=== PATIENT | female | born 1935 | race Caucasian/White ===

== ENCOUNTER 2018-07-11 10:30 | Inpatient (IN) | payer MEDICARE, OTHER ==
[~2018-07-11] VITALS: Ht 165.1 cm; Wt 88.6 kg
[~2018-07-11 10:30] MED LIST: MULTI-VITAMIN1 EACH PO
--- NOTE | 2018-07-11 11:34 | Diagnostic Imaging Report ---
EXAM: CHEST SINGLE (PORTABLE), DATE: 07/11/2018 10:35 AM Time stamp on exam: 10:59 AM INDICATION: Shortness of breath COMPARISON: None FINDINGS: LINES/TUBES: None LUNGS: No consolidations or edema. Right basilar subsegmental atelectasis. PLEURA: No effusions or pneumothorax. HEART AND MEDIASTINUM: Normal size and contour. BONES AND SOFT TISSUES: No acute findings. Plate overlying the lower cervical spine. IMPRESSION: No acute thoracic abnormality. Signed by: Dr. Nikhil Pickard DO on 07/11/2018 11:30 AM
[2018-07-11] MEDS ORDERED: ASPIRIN 81 MG CHEW TAB PO ONE (11:45)
[2018-07-11 12:00] LABS: BASOPHILS % 0.2 % (0.0-1.0); HEMATOCRIT 36.3 % (34.2-44.1); HEMOGLOBIN 12.3 g/dL (12.0-16.0); LYMPHOCYTES # (AUTO) 0.7 (1.0-3.2); LYMPHOCYTES % 7.4 % (18.0-39.1); MEAN CORPUSCULAR HEMOGLOBIN 31.1 pg (28-32); MEAN CORPUSCULAR HGB CONC 33.9 g/dL (31-35); MEAN CORPUSCULAR VOLUME 91.7 fL (81-99); MONOCYTES # (AUTO) 0.3 (0.2-0.8); MONOCYTES % 3.4 % (4.4-11.3); NEUTROPHILS # (AUTO) 8.4 (2.1-6.9); NEUTROPHILS % 88.7 % (38.7-80.0); PLATELET COUNT 274 x10e3/uL (140-360); RED BLOOD COUNT 3.96 x10e6/uL (3.6-5.1); RED CELL DISTRIBUTION WIDTH 13.5 % (11.7-14.4)
[2018-07-11 12:23] LABS: ALANINE AMINOTRANSFERASE 24 IU/L (0-55); ALBUMIN 3.5 g/dL (3.5-5.0); ALKALINE PHOSPHATASE 174 IU/L (40-150); ANION GAP 14.1 mmol/L (8-16); BLOOD UREA NITROGEN 35 mg/dL (7-26); BUN/CREATININE RATIO 43 (6-25); CALCIUM 9.6 mg/dL (8.4-10.2); CARBON DIOXIDE 23 mmol/L (22-29); CHLORIDE 105 mmol/L (98-107); CREATININE, SERUM 0.81 mg/dL (0.57-1.11); EST GLOMERULAR FILTRATION RATE > 60 ML/MIN (60-); GLUCOSE 124 mg/dL (74-118); POTASSIUM 4.1 mmol/L (3.5-5.1); SODIUM 138 mmol/L (136-145)
[2018-07-11] MEDS ORDERED: CHERATUSSIN AC118 ML PO (12:26)
[2018-07-11] MEDS ORDERED: PREDNISONE20 MG PO (12:26)
[2018-07-11] MEDS ORDERED: LEVOFLOXACIN500 MG PO (12:26)
[2018-07-11 12:30] LABS: CREATINE KINASE 26 IU/L (29-168)
[2018-07-11 12:50] LABS: BILIRUBIN,URINE NEGATIVE (NEGATIVE); CLARITY,URINE CLEAR (CLEAR); COLOR,URINE YELLOW (YELLOW); KETONES,URINE NEGATIVE (NEGATIVE); LEUKOCYTE ESTERASE ,URINE NEGATIVE (NEGATIVE); NITRITE,URINE NEGATIVE (NEGATIVE); PROTEIN,URINE DIPSTICK NEGATIVE (NEGATIVE); URINE UROBILINOGEN 0.2 mg/dL (0.2 - 1)
[2018-07-11 13:29] VITALS: BP 175/81
[2018-07-11 13:32] VITALS: BP 175/81
[2018-07-11 13:41] VITALS: BP 175/81
[2018-07-11 16:00] VITALS: BP 103/57
[2018-07-11 19:46] VITALS: BP 157/67
[2018-07-11 19:55] VITALS: BP 157/67
[2018-07-11 20:34] LABS: CREATINE KINASE 18 IU/L (29-168)
[2018-07-12] VITALS (8 sets, daily range): BP systolic 113–150; BP diastolic 62–73
[2018-07-12 05:02] LABS: BASOPHILS % 0.1 % (0.0-1.0); HEMATOCRIT 34.3 % (34.2-44.1); HEMOGLOBIN 11.5 g/dL (12.0-16.0); LYMPHOCYTES # (AUTO) 1.3 (1.0-3.2); LYMPHOCYTES % 10.7 % (18.0-39.1); MEAN CORPUSCULAR HEMOGLOBIN 30.8 pg (28-32); MEAN CORPUSCULAR HGB CONC 33.5 g/dL (31-35); MONOCYTES # (AUTO) 0.8 (0.2-0.8); MONOCYTES % 6.3 % (4.4-11.3); NEUTROPHILS # (AUTO) 9.8 (2.1-6.9); NEUTROPHILS % 82.5 % (38.7-80.0); PLATELET COUNT 257 x10e3/uL (140-360); RED BLOOD COUNT 3.73 x10e6/uL (3.6-5.1); RED CELL DISTRIBUTION WIDTH 13.8 % (11.7-14.4)
[2018-07-12 05:34] LABS: CREATINE KINASE 21 IU/L (29-168)
[2018-07-12] MEDS: GUAIFENESIN 200 MG/10 ML UDC PO PRN ×2 (06:00→22:58)
[2018-07-12 06:09] LABS: ALANINE AMINOTRANSFERASE 20 IU/L (0-55); ALBUMIN 3.2 g/dL (3.5-5.0); ALBUMIN/GLOBULIN RATIO 1.1 (0.8-2.0); ALKALINE PHOSPHATASE 135 IU/L (40-150); BLOOD UREA NITROGEN 27 mg/dL (7-26); BUN/CREATININE RATIO 36 (6-25); CALCIUM 9.1 mg/dL (8.4-10.2); CARBON DIOXIDE 21 mmol/L (22-29); CHLORIDE 105 mmol/L (98-107); CREATININE, SERUM 0.75 mg/dL (0.57-1.11); EST GLOMERULAR FILTRATION RATE > 60 ML/MIN (60-); GLUCOSE 106 mg/dL (74-118); SODIUM 136 mmol/L (136-145)
[2018-07-12] MEDS ORDERED: BENZONATATE 100 MG CAP PO PRN (09:30)
[2018-07-12] MEDS ORDERED: ALBUTEROL/IPRATROPIUM 3 ML NEB NEB PRN (09:30)
[2018-07-12] MEDS ORDERED: LEVALBUTEROL HCL SOLN NEBU 0.63 MG/3 ML NEB INH PRN (09:30)
[2018-07-12] MEDS ORDERED: CEFTRIAXONE SOD 1 GM/NS 50 ML 50 ML IV SCH (09:30)
--- NOTE | 2018-07-12 10:12 | History and Physical ---
CHIEF COMPLAINT: Very fatigued, chest pain and not feeling well. HISTORY: Patient is an 82-year-old female who came to the hospital because of increase in weakness, chest pain and breathing difficulty. The patient was having some upper respiratory problems. She came to see Dr. Yonatan Beaulieu, her PCP. Was given Levaquin, Cheratussin and prednisone back on July 09, 2018. Patient took some of the medication, but she did feel well. Therefore, she came to see Dr. Beaulieu again. The patient had significant bradycardia. She was not feeling well and had difficulty breathing. Therefore, ambulance came and picked up the patient, and brought her to the hospital emergency room. Here the patient's EKG showed that she had a heart rate in the 50s. The patient has also increasing breathing issue as well. She has chest pressure and tightness. The patient is otherwise stable at this time. PAST MEDICAL HISTORY: Osteoarthritis, bilateral knee replacements. SOCIAL HISTORY: The patient lives with her . She does not smoke or use alcohol. No recreational drugs. ALLERGIES: ALBUTEROL, PENICILLIN AND VANCOMYCIN. HOME MEDICATIONS: Recently, Levaquin, Cheratussin AC and prednisone. PHYSICAL EXAMINATION VITAL SIGNS: Temperature is 98.6, blood pressure 122/67, pulse rate is 48, respirations are 22. GENERAL: The patient is not in acute distress. She is anxious. HEENT: Normocephalic, atraumatic and anicteric. NECK: Supple grossly. PULMONARY: Bilateral coarses and diminished breath rales. CARDIOVASCULAR: Bradycardia. ABDOMEN: Soft. EXTREMITIES: No cyanosis or edema. NEUROLOGIC: No focal deficit. LABORATORY: Sodium is 132, potassium 4, chloride 105, bicarb 21, BUN 27, creatinine 0.7, glucose 106. WBC is 12, hemoglobin 11.5, hematocrit is 34.3, and platelets is 257,000. IMPRESSION 1. Possible pneumonia, atypical. 2. Increasing shortness of breath and chest pain, most likely secondary to the above. 3. Bradycardia, etiology unclear at this time. PLAN: Antibiotics. Nebulizer treatment. Antitussive. Echocardiogram. Consultation with Dr. Moody Avalos. Check thyroid function test and electrolytes. DVT prophylaxis. Patient will be admitted for treatment. If her heart rate is not improved and the patient remains symptomatic, she may need a permanent pacemaker. Will discuss that with Dr. Moody Avalos, continuous improvement facilitator in consultation. Job#: [id number] RI
--- NOTE | 2018-07-12 10:43 | Consultation ---
DATE OF CONSULTATION: July 11, 2018 CARDIOLOGY CONSULTATION Thank you so much for asking me to see this nice lady in consultation. Mrs. Lopez is an 82-year-old woman who presented to the emergency room for what she felt was a "reaction" to antibiotics. HISTORY OF PRESENT ILLNESS: The patient reports that she saw Dr. Lynn in the last week for continuing cough. She was given a prescription for Levaquin, which she thinks does not agree with her for some reason. She cannot elucidate any details, but she continues to cough. PAST MEDICAL HISTORY: Relatively insignificant. She insists that she never takes any medications and has never been ill. She does report she has had previous knee surgeries. REVIEW OF SYSTEMS CARDIAC: She has not known of any cardiac problems. The only chest pain she has had is when she coughs. She denies any hypertension or diabetes. PHYSICAL EXAMINATION GENERAL: At this time shows an alert white woman who is conversant and oriented. VITALS: Blood pressure reported at 175/81, pulse is 50 and regular. HEENT: Relatively unremarkable. NECK: No jugular venous distention. THORAX: Heart sounds S1 and S2 are equal. No murmurs, gallops or rubs. LUNGS: Have faint diffuse rhonchi bilaterally. ABDOMEN: Protuberant. Normal bowel sounds. EXTREMITIES: No cyanosis, clubbing or edema. EKG on the chart shows sinus bradycardia at 53 with competing junctional rhythm. No S/T or T-wave changes. Initial CBC shows hemoglobin 12.3, white count 9.4. Chemistries show sodium 138, chloride 105, bicarb 23, BUN 35, creatinine 0.8, alkaline phosphatase 174. Lactic acid 15.9, which is normal up to 19.8. Urinalysis is unremarkable. ASSESSMENT 1. Bronchitis or pneumonia. 2. Hypertension, not previously diagnosed. PLAN: Will monitor her and add Robitussin. Check echocardiogram to rule out any congestive heart failure. Will follow her closely with you. Thank you for asking me to see her in consultation. Job#: [id number] RI cc:KARUNA LYNN MD
[2018-07-12] MEDS: CEFTRIAXONE SOD 1 GM VIAL IV SCH (11:20)
--- NOTE | 2018-07-12 11:54 | Diagnostic Imaging Report ---
EXAM: CT Chest without contrast INDICATION: Shortness of breath. COMPARISON: Chest radiograph 07/11/18. TECHNIQUE: Chest was scanned utilizing a multidetector helical scanner from the lung apex through the level of the adrenal glands without administration of IV contrast. Coronal and sagittal reformations were obtained. Routine protocol was performed. IV CONTRAST: None. RADIATION DOSE: Total DLP: 548.8 mGy*cm Estimated effective dose: (DLP x 0.014 x size factor) mSv COMPLICATIONS: None FINDINGS: LINES/ TUBES: None. LUNGS AND AIRWAYS: The central airways are patent. Mild biapical pleural parenchymal opacity. There is a 5 mm solid pulmonary nodule in the left upper lobe on series 3, image 59. There is a 3 mm solid pulmonary nodule in the left lower lobe on image 72. There is patchy consolidation in the right lower lobe with associated volume loss. There are scattered dependent atelectatic changes. PLEURA: The pleural spaces are clear. HEART AND MEDIASTINUM: The thyroid gland is normal. No mediastinal, hilar or axillary lymphadenopathy. No cardiomegaly or pericardial effusion. Atherosclerotic calcifications of the coronary vessels, aorta, and mitral annulus. UPPER ABDOMEN: Limited non-contrast views of the upper abdomen show no abnormality within the visualized liver, spleen, pancreas, or kidneys. The adrenal glands are normal. Status post cholecystectomy. Small hiatal hernia. BONES: No acute bony abnormality. Lower cervical fixation hardware is partially seen. Mild degenerative disc and facet degenerative changes of the thoracic spine. SOFT TISSUES: Unremarkable. IMPRESSION: Patchy consolidation in the right lower lung with volume loss, likely atelectasis. Superimposed pneumonia is possible in the appropriate clinical setting. Left sided pulmonary nodules measuring up to 5 mm. In a patient at low risk for malignancy, per modified Fleischner guidelines, no follow-up is suggested. If the patient is at high risk for malignancy, then an optional chest CT may be considered in 12 months. Signed by: Dr. Sanaz Haddad MD on 07/12/2018 11:51 AM
[2018-07-12] MEDS ORDERED: ALBUTEROL/IPRATROPIUM 3 ML NEB NEB SCH (13:00)
[2018-07-12] MEDS: ENOXAPARIN SOD INJ 40 MG/0.4 ML SYR SC SCH (17:00)
[2018-07-12] MEDS: IPRATROPIUM BROMIDE 0.02% 2.5 ML NEB NEB SCH ×2 (17:00→19:50)
[2018-07-12] MEDS: LEVALBUTEROL HCL SOLN NEBU 0.63 MG/3 ML NEB INH SCH ×2 (17:00→19:50)
[2018-07-13] VITALS (7 sets, daily range): BP systolic 133–172; BP diastolic 60–72
[2018-07-13] MEDS: IPRATROPIUM BROMIDE 0.02% 2.5 ML NEB NEB SCH ×5 (01:10→23:50)
[2018-07-13] MEDS: LEVALBUTEROL HCL SOLN NEBU 0.63 MG/3 ML NEB INH SCH ×5 (01:10→23:50)
[2018-07-13 05:23] LABS: ANION GAP 16.2 mmol/L (8-16); BLOOD UREA NITROGEN 28 mg/dL (7-26); BUN/CREATININE RATIO 33 (6-25); CARBON DIOXIDE 21 mmol/L (22-29); CHLORIDE 107 mmol/L (98-107); CREATININE, SERUM 0.86 mg/dL (0.57-1.11); EST GLOMERULAR FILTRATION RATE > 60 ML/MIN (60-); GLUCOSE 92 mg/dL (74-118); POTASSIUM 4.2 mmol/L (3.5-5.1); SODIUM 140 mmol/L (136-145)
[2018-07-13 05:53] LABS: MAGNESIUM 2.1 MG/DL (1.3-2.1)
[2018-07-13 06:16] LABS: THYROID STIMULATING HORMONE 2.691 uIU/mL (0.350-4.940)
[2018-07-13 06:53] LABS: FOLATE 12.5 ng/mL (7.0-15.4)
[2018-07-13] MEDS: ACETAMINOPHEN 325 MG TAB PO PRN (08:09)
[2018-07-13] MEDS: CEFTRIAXONE SOD 1 GM VIAL IV SCH (12:00)
[2018-07-13] MEDS ORDERED: [UNRECOGNIZED DRUG - REMARK] TOP (12:32)
[2018-07-13] MEDS: ENOXAPARIN SOD INJ 40 MG/0.4 ML SYR SC SCH (17:05)
[2018-07-14 00:24] VITALS: BP 161/67
[2018-07-14 05:38] VITALS: BP 130/63
[2018-07-14] MEDS: LEVALBUTEROL HCL SOLN NEBU 0.63 MG/3 ML NEB INH SCH ×2 (06:55→12:47)
[2018-07-14] MEDS: IPRATROPIUM BROMIDE 0.02% 2.5 ML NEB NEB SCH ×3 (06:55→19:00)
[2018-07-14 08:00] VITALS: BP 142/63
[2018-07-14] MEDS: CEFTRIAXONE SOD 1 GM VIAL IV SCH (11:22)
[2018-07-14 12:00] VITALS: BP 129/57
[2018-07-14 16:00] VITALS: BP 155/69
[2018-07-14] MEDS: ENOXAPARIN SOD INJ 40 MG/0.4 ML SYR SC SCH (16:15)
[2018-07-14 20:00] VITALS: BP 142/63
[2018-07-15] VITALS (7 sets, daily range): BP systolic 122–143; BP diastolic 56–68
[2018-07-15] MEDS: LEVALBUTEROL HCL SOLN NEBU 0.63 MG/3 ML NEB INH SCH ×4 (01:00→19:35)
[2018-07-15] MEDS: IPRATROPIUM BROMIDE 0.02% 2.5 ML NEB NEB SCH ×4 (01:00→19:35)
[2018-07-15] MEDS: CEFTRIAXONE SOD 1 GM VIAL IV SCH (10:36)
[2018-07-15] MEDS: ENOXAPARIN SOD INJ 40 MG/0.4 ML SYR SC SCH (16:21)
[2018-07-15] MEDS: ACETAMINOPHEN 325 MG TAB PO PRN (23:54)
[2018-07-15] MEDS: GUAIFENESIN 200 MG/10 ML UDC PO PRN (23:54)
[2018-07-16] VITALS (7 sets, daily range): BP systolic 120–151; BP diastolic 61–82
[2018-07-16] MEDS: IPRATROPIUM BROMIDE 0.02% 2.5 ML NEB NEB SCH ×4 (01:07→19:10)
[2018-07-16] MEDS: LEVALBUTEROL HCL SOLN NEBU 0.63 MG/3 ML NEB INH SCH ×4 (01:07→19:10)
[2018-07-16 05:12] LABS: BASOPHILS % 0.5 % (0.0-1.0); EOSINOPHILS # (AUTO) 0.1 (0.0-0.4); EOSINOPHILS % 1.6 % (0.0-6.0); HEMATOCRIT 35.8 % (34.2-44.1); HEMOGLOBIN 12.1 g/dL (12.0-16.0); LYMPHOCYTES # (AUTO) 1.1 (1.0-3.2); MEAN CORPUSCULAR HEMOGLOBIN 30.8 pg (28-32); MEAN CORPUSCULAR HGB CONC 33.8 g/dL (31-35); MEAN CORPUSCULAR VOLUME 91.1 fL (81-99); MONOCYTES # (AUTO) 0.7 (0.2-0.8); MONOCYTES % 10.7 % (4.4-11.3); NEUTROPHILS # (AUTO) 4.4 (2.1-6.9); NEUTROPHILS % 69.7 % (38.7-80.0); PLATELET COUNT 232 x10e3/uL (140-360); RED BLOOD COUNT 3.93 x10e6/uL (3.6-5.1); RED CELL DISTRIBUTION WIDTH 13.8 % (11.7-14.4)
[2018-07-16 05:39] LABS: ANION GAP 16.1 mmol/L (8-16); BLOOD UREA NITROGEN 19 mg/dL (7-26); BUN/CREATININE RATIO 26 (6-25); CALCIUM 9.3 mg/dL (8.4-10.2); CARBON DIOXIDE 21 mmol/L (22-29); CHLORIDE 108 mmol/L (98-107); CREATININE, SERUM 0.73 mg/dL (0.57-1.11); EST GLOMERULAR FILTRATION RATE > 60 ML/MIN (60-); GLUCOSE 96 mg/dL (74-118); POTASSIUM 4.1 mmol/L (3.5-5.1); SODIUM 141 mmol/L (136-145)
[2018-07-16] MEDS: CEFTRIAXONE SOD 1 GM VIAL IV SCH (11:21)
[2018-07-16] MEDS: ENOXAPARIN SOD INJ 40 MG/0.4 ML SYR SC SCH (16:46)
[2018-07-17] VITALS: BP 133/73
[2018-07-17] MEDS: LEVALBUTEROL HCL SOLN NEBU 0.63 MG/3 ML NEB INH SCH ×3 (01:25→13:53)
[2018-07-17] MEDS: IPRATROPIUM BROMIDE 0.02% 2.5 ML NEB NEB SCH ×3 (01:25→13:53)
[2018-07-17 04:00] VITALS: BP 145/75
[2018-07-17 07:49] VITALS: BP 136/66
[2018-07-17 08:00] VITALS: BP 136/66
[2018-07-17] MEDS: CEFTRIAXONE SOD 1 GM VIAL IV SCH (11:03)
[2018-07-17 12:00] VITALS: BP 148/68
--- OUTSIDE RECORDS SUMMARY | 2018-07-17 12:34 | XMS REPORT | Clinical Summary ---
Author Author [facility] Organization [facility] Address Unknown Phone Unavailable Care Team Providers Care Electronic Tester Name Role Phone Suleiman Ramirez MD PCP Allergies Active Allergy Reactions Severity Noted Date Comments Albuterol High 12/19/2017 Severe shaking Penicillin G 12/19/2017 Vancomycin 12/19/2017 Current Medications Prescription Sig. Disp. Refills Start End Date Status Date traMADol (ULTRAM) 50 mg 11/28/19 Active tablet 18 mupirocin (BACTROBAN) 2 % 10/03/19 Active ointment 18 atorvastatin (LIPITOR) 10 11/28/19 Active MG tablet 18 pantoprazole (PROTONIX) Take 40 mg by mouth Active 40 MG EC tablet daily. Active Problems Not on file Encounters Date Type Specialty Care Team Description 01/16/2018 Office Visit Orthopedic Surgery Bandar Cat MD Spinal stenosis of lumbar region with neurogenic claudication (Primary Dx) 01/04/2018 Office Visit Orthopedic Surgery Bandar Cat MD Cervical pain (Primary Dx); Chronic bilateral low back pain with bilateral sciatica 12/27/2017 Hospital Radiology Bandar Cat MD Spinal stenosis of lumbar Encounter region with neurogenic claudication 12/25/2017 Procedure Pass Radiology 12/25/2017 Orders Only Orthopedic Surgery Monse Puckett MA Spinal stenosis of lumbar region with neurogenic claudication (Primary Dx) 12/22/2017 Hospital Radiology Bandar Cat MD Cervical stenosis of Encounter spine 12/19/2017 Office Visit Orthopedic Surgery Bandar Cat MD Cervical stenosis of spine (Primary Dx) after 07/10/2017 Family History Medical History Relation Name Comments Cancer Mother X Relation Name Status Comments Mother X Social History Tobacco Use Types Packs/Day Years Used Date Never Smoker Smokeless Tobacco: Never Used Alcohol Use Drinks/Week oz/Week Comments No Sex Assigned at Date Recorded Not on file Last Filed Vital Signs Vital Sign Reading Time Taken Blood Pressure - - Pulse - - Temperature - - Respiratory Rate - - Oxygen Saturation - - Inhaled Oxygen - - Concentration Weight 77.1 kg (170 lb) 12/22/2017 8:24 AM CDT Height 165.1 cm (5' 5") 12/22/2017 8:24 AM CDT Body Mass Index 28.29 12/22/2017 8:24 AM CDT Plan of Treatment Health Maintenance Due Date Last Done Comments SHINGRIX VACCINE (#1) 1985 ZOSTER VACCINE 1995 PNEUMOCOCCAL 2000 POLYSACCHARIDE VACCINE AGE 65 AND OVER PNEUMOCOCCAL-13 2000 INFLUENZA VACCINE 05/02/2018 Procedures Procedure Name Priority Date/Time Associated Diagnosis Comments MRI LUMBAR SPINE WO Routine 12/27/2017 Spinal stenosis of lumbar Results for this CONTRAST 3:36 PM CDT region with neurogenic procedure are in the claudication results section. after 07/10/2017 Results * MRI Lumbar Spine Wo Contrast (12/27/2017 3:36 PM) Narrative Performed At EXAMINATION:MRI LUMBAR SPINE WO CONTRAST [facility] CLINICAL HISTORY:M48.062 Spinal stenosislumbar region with neurogenic claudication, scs COMPARISON:CT lumbar myelogram dated March 28, 2014 TECHNIQUE: Multiplanar MRI imaging withoutIV Gadolinium was performed. FINDINGS: The numbering of this study assumes transitional S1 with hypoplastic disc at S1-S2 level. There is stable minimal retrolisthesis of L1 and L2 level. Vertebral bodies are preserved. Bone marrow is unremarkable with no evidence of acute fracture or suspicious marrow-replacing lesion. . The distal spinal cord appears unremarkable. The conus medullaris terminates at the L2-L3 level and appears unremarkable. The cauda equina is unremarkable. L1-2: Spondylotic disc space narrowing with bilateral facet arthropathy and minimal retrolisthesis of L1 on L2 level. There is minimal canal stenosis. There is no foraminal narrowing. L2-3: Mild disc bulge with bilateral facet arthropathy. There is no canal stenosis and no foraminal narrowing. L3-4: Minimal disc bulge with bilateral facet arthropathy. There is no canal stenosis or foramina narrowing. L4-5: Mild disc bulge with bilateral facet arthropathy ligaments hypertrophy. There is no canal stenosis. There is minimal bilateral lateral recess narrowing. L5-S1: I there is advanced bilateral facet arthropathy ligamentous hypertrophy with diffuse disc bulge. There is mild canal stenosis with moderate severe left and moderate right lateral recess narrowing. There is a mild left foraminal narrowing. The right foramen is patent. There has been no significant interval change. Visualized paraspinal soft tissues are unremarkable. 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 [id number] Procedure Note Interface, Radiology Results - 12/27/2017 7:35 PM CDT EXAMINATION: MRI LUMBAR SPINE WO CONTRAST CLINICAL HISTORY: M48.062 Spinal stenosis lumbar region with neurogenic claudication, scs COMPARISON: CT lumbar myelogram dated March 28, 2014 TECHNIQUE: Multiplanar MRI imaging without IV Gadolinium was performed. FINDINGS: The numbering of this study assumes transitional S1 with hypoplastic disc at S1- S2 level. There is stable minimal retrolisthesis of L1 and L2 level. Vertebral bodies are preserved. Bone marrow is unremarkable with no evidence of acute fracture or suspicious marrow-replacing lesion. . The distal spinal cord appears unremarkable. The conus medullaris terminates at the L2-L3 level and appears unremarkable. The cauda equina is unremarkable. L1-2: Spondylotic disc space narrowing with bilateral facet arthropathy and minimal retrolisthesis of L1 on L2 level. There is minimal canal stenosis. There is no foraminal narrowing. L2-3: Mild disc bulge with bilateral facet arthropathy. There is no canal stenosis and no foraminal narrowing. L3-4: Minimal disc bulge with bilateral facet arthropathy. There is no canal stenosis or foramina narrowing. L4-5: Mild disc bulge with bilateral facet arthropathy ligaments hypertrophy. There is no canal stenosis. There is minimal bilateral lateral recess narrowing. L5-S1: I there is advanced bilateral facet arthropathy ligamentous hypertrophy with diffuse disc bulge. There is mild canal stenosis with moderate severe left and moderate right lateral recess narrowing. There is a mild left foraminal narrowing. The right foramen is patent. There has been no significant interval change. Visualized paraspinal soft tissues are unremarkable. 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 [id number] Performing Organization Address City/State/Zipcode Phone Number [facility] [address] [place] [address] after 07/10/2017 Insurance Payer Benefit Subscriber ID Type Phone Address Plan / Group [employer] MEDICARE HU[employer]NA HMO xxxxxxxxx H[place] [address]
--- OUTSIDE RECORDS SUMMARY | 2018-07-17 12:40 | XMS REPORT | Clinical Summary ---
Author Author [facility] Organization [facility] Address Unknown Phone Unavailable Care Team Providers Care Emergency Management Director Name Role Phone Suleiman Ramirez MD PCP [...] at L4-L5 and L5-S1 levels as described. [facility]-[id number] Procedure Note Interface, Radiology Results - 12/27/2017 [...] at L4-L5 and L5-S1 levels as described. [facility]-[id number] Performing Organization Address City/State/Zipcode Phone Number [facility] [address] [place] [address] after 07/10/2017 Insurance Payer Benefit Subscriber ID Type Phone Address Plan / Group HU[employer] MEDICARE HU[employer]NA HMO xxxxxxxxx H[place] [address]
--- OUTSIDE RECORDS SUMMARY | 2018-07-17 12:40 | XMS REPORT ---
[facility] Address Unknown Phone Unavailable Care Team Providers Care Color Weigher Name Role Phone JOSSELYN AHUJA Unavailable Unavailable Problems This patient has no known problems. Allergies, Adverse Reactions, Alerts This patient has no known allergies or adverse reactions. Medications This patient has no known medications. Results Test Description Test Time Test Comments Text Results Atomic Results Result Comments CT CHEST WO 2018-07-12 11:39:00 [place] [address] Patient Name: CLIF RUIZ MR #: [id number] : 1935 Age/Sex: 82/F Req #: [id number] [facility] Physician: JOSSELYN AHUJA MD Ordered by: JOSSELYN AHUJA MD Report #: [id number] Location: [facility] Room/Bed: [place] [address] Procedure: [id number] CT/CT CHEST WO Exam Date: 07/12/18 Exam Time: 1100 REPORT STATUS: Signed EXAM: CT Chest without contrast INDICATION: Shortness of breath. COMPARISON: Chest radiograph 07/11/18. TECHNIQUE: Chest was scanned utilizing a multidetector helical scanner from the lung apex through the level of the adrenal glands without administration of IV contrast. Coronal and sagittal reformations were obtained. Routine protocol was performed. IV CONTRAST: None. RADIATION DOSE: Total DLP: 548.8 mGy*cm Estimated effective dose: (DLP x 0.014 x size factor) mSv COMPLICATIONS: None FINDINGS: LINES/ TUBES: None. LUNGS AND AIRWAYS: The central airways are patent. Mild biapical pleural parenchymal opacity. There is a 5 mm solid pulmonary nodule in the left upper lobe on series 3, image 59. There is a 3 mm solid pulmonary nodule in the left lower lobe on image 72. There is patchy consolidation in the right lower lobe with associated volume loss. There are scattered dependent atelectatic changes. PLEURA: The pleural spaces are clear. HEART AND MEDIASTINUM: The thyroid gland is normal. No mediastinal, hilar or axillary lymphadenopathy. No cardiomegaly or pericardial effusion. Atherosclerotic calcifications of the coronary vessels, aorta, and mitral annulus. UPPER ABDOMEN: Limited non-contrast views of the upper abdomen show no abnormality within the visualized liver, spleen, pancreas, or kidneys. The adrenal glands are normal. Status post cholecystectomy. Small hiatal hernia. BONES: No acute bony abnormality. Lower cervical fixation hardware is partially seen. Mild degenerative disc and facet degenerative changes of the thoracic spine. SOFT TISSUES: Unremarkable. IMPRESSION: Patchy consolidation in the right lower lung with volume loss, likely atelectasis. Superimposed pneumonia is possible in the appropriate clinical setting. Left sided pulmonary nodules measuring up to 5 mm. In a patient at low risk for malignancy, per modified Fleischner guidelines, no follow-up is suggested. If the patient is at high risk for malignancy, then an optional chest CT may be considered in 12 months. Signed by: Dr. Stephany Benoit MD on 07/12/2018 11:51 AM Dictated By: STEPHANY BENOIT MD 1151 Transcribed By: EVA on 07/12/18 1151 COPY TO: JOSSELYN AHUJA MD CHEST SINGLE (PORTABLE) 2018-07-11 11:29:00 [place] [address] Patient Name: CLIF RUIZ MR #: [id number] : 1935 Age/Sex: 82/F Req #: [id number] Adm Physician: Ordered by: ANA MARIA RUBI MD Report #: [id number] Location: ER Room/Bed: Procedure: [id number] DX/CHEST SINGLE (PORTABLE) Exam Date: 07/11/18 Exam Time: 1050 REPORT STATUS: Signed EXAM: CHEST SINGLE (PORTABLE), DATE: 07/11/2018 10:35 AM Time stamp on exam: 10:59 AM INDICATION: Shortness of breath COMPARISON: None FINDINGS: LINES/TUBES: None LUNGS: No consolidations or edema. Right basilar subsegmental atelectasis. PLEURA: No effusions or pneumothorax. HEART AND MEDIASTINUM: Normal size and contour. BONES AND SOFT TISSUES: No acute findings. Plate overlying the lower cervical spine. IMPRESSION: No acute thoracic abnormality. Signed by: Dr. Anish Pickard DO on 07/11/2018 11:30 AM Dictated By: ANISH PICKARD DO 1130 Transcribed By: EVA on 07/11/18 1130 COPY TO: ANA MARIA RUBI MD
[2018-07-17] MEDS: ENOXAPARIN SOD INJ 40 MG/0.4 ML SYR SC SCH (16:29)
[2018-07-17 16:37] VITALS: BP 194/88
--- NOTE | 2018-07-17 18:49 | Discharge Summary ---
PRIMARY CARE PHYSICIAN: Dr. Yonatan Beaulieu. PULP OPERATOR: Dr. Moody Avalos. FINAL DIAGNOSES: 1. Paroxysmal atrial fibrillation most likely secondary to allergic drug reaction. 2. Acute bronchitis, resolved. 3. Allergic rhinitis with sinus congestion and cough. SUMMARY: Patient is a an 82-year-old female with recent upper respiratory symptoms. The patient was started on Levaquin, steroids and cough medication. She came in with atrial fibrillation, rapid ventricular rate response. Subsequently, the patient's heart rate went to bradycardic but improved now. Heart rate in the 60s and 70s. The patient had no previous medical problem. She is stable. Dr. Avalos saw the patient. Echocardiogram showed ejection fraction of 65%. She had a left atrial enlargement, trace tricuspid regurgitation, but otherwise unremarkable echocardiogram. Patient doing much better. CT scan of the chest that was done showed that she had some patchy consolidation in the right lower lobe with volume loss likely atelectasis, but possible superimposed pneumonia. The patient had no fever. Blood pressure slightly elevated due to anxiety. White cell count was WBC of 9.47. Patient is stable now. She does not require any medication on discharge. Her wheezing has subsided. Upper respiratory symptoms have improve. Patient will discontinue all home medication. She can take Robitussin over the counter as needed for cough. She can take Claritin 10 mg a day over the counter for sinus congestion. Otherwise the patient is stable. No further workup needed at this time. The patient's laboratory repeated as follows: Sodium 141, potassium 4.1, chloride 108, bicarb 21, BUN 19, creatinine 0.7 and glucose 96. WBC 6.2, hemoglobin 12, hematocrit 35. Platelets are 232. Patient will be discharged home today. All instructions given to the patient and her spouse. Job#: [id number]
== END 2018-07-17 18:36 | disposition home or self-care (01) | DRG 308 ==
LOC: ER 10:30 → ERHOLD 12:57 → IMCU 13:18 → OBSVTOIN 07-12 09:17 → MED/SURG2 07-12 13:57
PROVIDERS: ADMIT Internal Medicine; ATTEND Internal Medicine
DX: I48.0 Paroxysmal atrial fibrillation (principal); J18.9 Pneumonia, unspecified organism; I10 Essential (primary) hypertension; R00.1 Bradycardia, unspecified; T50.905A Adverse effect of unspecified drugs, medicaments and biological substances, initial encounter; J20.9 Acute bronchitis, unspecified; J30.2 Other seasonal allergic rhinitis; Z96.653 Presence of artificial knee joint, bilateral
CPT/HCPCS: 36415; 71045; 71250; 80048; 80053; 81001; 82550; 82553; 82607; 82746; 83605; 83735; 84100; 84443; 84484; 85025; 87040; 87086; 93005; 93306; 94640; 99284; G0378; J0696; J1650